=== PATIENT | male | born 1960 | race African-American/Black ===

== ENCOUNTER 2018-03-02 12:21 | Emergency (ER) | payer OTHER | END 2018-03-02 12:31 | disposition left against medical advice (07) | LOC: ERS 12:21 | DX: Z53.21 Procedure and treatment not carried out due to patient leaving prior to being seen by health care provider (principal) ==

== ENCOUNTER 2024-05-04 22:59 | Emergency (ER) | payer OTHER ==
[2024-05-04] MEDS ORDERED: Ibuprofen 800 MG TAB ONE (23:05)
== END 2024-05-05 00:15 | disposition left against medical advice (07) ==
LOC: ERS 22:59
DX: Z53.21 Procedure and treatment not carried out due to patient leaving prior to being seen by health care provider (principal)
CPT/HCPCS: 71045; 87428; 93005